=== PATIENT | female | born 1990 | race Caucasian/White ===

== ENCOUNTER 2017-04-11 21:49 | Emergency (ER) | payer OTHER ==
[~2017-04-11] VITALS: Ht 147.3 cm; Wt 61.5 kg
[~2017-04-11 21:49] MED LIST: IBUP800 PO; OXYC-360 PO; PREN0.01 PO
[2017-04-11 21:52] VITALS: BP 138/90; PULSE 77; RESP 16; TEMP 98.3; O2SAT 99
[2017-04-11] MEDS ORDERED: PROPARACAINE HCL 0.5% OPHT SOLN 15 ML BTL RIGHT EYE ONE (22:30)
--- NOTE | 2017-04-11 22:34 | PD ---
HPI Chief Complaint: Eye Problems/Injury Time Seen by Provider: 22:22 Travel History International Travel<30 days: No Contact w/Intl Traveler<30days: No Traveled to known affect area: No History of Present Illness HPI 27yo F with no PMH presents to the ED with c/o right eye irritation, foreign body sensation after splashing a combination of auditing specialist, grease, and crumbs in her right eye at 9:50pm while working in [employer]. Said it was only a few drops and she tried to rinse it out in eye wash but did not last very long. Has a little blurred vision. However, no eye pain or pain with eye movement. Denies any other injuries. Denies any fever, chest pain, sob, n/v, abdominal pain, focal weakness or numbness. PFSH Past Medical History ADHD: No Anxiety: Yes (gets attacks) Depression: Yes Cancer: No Diabetes: No Diminished Hearing: No Psychiatric: No Immunizations Current: Yes Migraines: No Seizures: No Thyroid Disease: No Ulcer: No ?: Not LMP: 04/10/17 Past Surgical History Surgical History: No Previous Surgery Appendectomy: No Cholecystectomy: No Social History Alcohol Use: Yes (RARE) Tobacco Use: Yes (1/2-1PPD) Substance Use: No Allergies-Medications (Allergen,Severity, Reaction): Coded Allergies: No Known Allergies (Verified Adverse Reaction, Unknown, 04/11/17) Reported Meds & Prescriptions Reported Meds & Active Scripts Active Reported Percocet (Oxycodone/Acetaminophen) 5 Mg/325 Mg Tab 1-2 Tab PO Q4H PRN FOR PAIN Motrin 800 Mg Tab (Ibuprofen) 800 Mg Tab 800 Mg PO Q8H PRN Vit ( Plus) (Prenat Multivit/[place]/Iron/Folic Ac) Tab 1 Tab PO DAILY Review of Systems Except as stated in HPI: all other systems reviewed are Neg Physical Exam Narrative GENERAL: 27yo F in mild distress. SKIN: Focused skin assessment warm/dry. HEAD: Atraumatic. Normocephalic. EYES: Pupils equal and round at 3mm bilaterally. EOMI. Right eye: Injected conjunctiva. +Corneal abrasion in mid cornea that can be seen on normal exam. +Florescein uptake in mid cornea with tejada lamp. ENT: No nasal bleeding or discharge. Mucous membranes pink and moist. NECK: Trachea midline. No JVD. CARDIOVASCULAR: Regular rate and rhythm. No murmur appreciated. RESPIRATORY: No accessory muscle use. Clear to auscultation. Breath sounds equal bilaterally. GASTROINTESTINAL: Abdomen soft, non-tender, nondistended. Hepatic and splenic margins not palpable. MUSCULOSKELETAL: No obvious deformities. No clubbing. No cyanosis. No edema. NEUROLOGICAL: Awake and alert. No obvious cranial nerve deficits. Motor grossly within normal limits. Normal speech. PSYCHIATRIC: Appropriate mood and affect; insight and judgment normal. Data Data Last Documented VS Vital Signs Date Time Temp Pulse Resp B/P (MAP) Pulse Ox O2 Delivery O2 Flow Rate FiO2 04/11/17 21:52 98.3 77 16 138/90 (106) 99 Room Air Orders Orders Proparacaine 0.5% Opth Soln (Alcaine 0.5 (04/11/17 22:30) MDM Medical Decision Making Medical Screen Exam Complete: Yes Emergency Medical Condition: Yes Differential Diagnosis Chemical exposure to eye vs. corneal abrasion Narrative Course 27yo F with right eye irritation. Visual acuity: Right eye 20/40. I spoke with poison control who recommended checking pH of eye and then irrigation until no pain. However, I ask charge nurse and everyone and there is no proper pH paper for the eye in stock at this time. I did use francia lens and irrigated 1 liter of NS in right eye. Pt said she feels much better and there is no pain. Wood's lamp showed flurescein uptake in middle of cornea. I discussed with Dr. Motta, decontamination technician [employer] consultant and she said that she follow up with her as outpatient and that we will just treat it like a corneal abrasion. Return precautions given. Diagnosis Primary Impression: Corneal abrasion Qualified Codes: S05.01XA - Injury of conjunctiva and corneal abrasion without foreign body, right eye, initial encounter Referrals: Shara Motta MD call for appointment Departure Forms: Tests/Procedures Additional Instructions: Please follow up with Dr. Motta tomorrow. Return to the ED if symptoms worsen. Med/Other Pt SpecificInfo: Prescription(s) given Scripts Erythromycin Opth Oint (Erythromycin Opth Oint) 5 Mg/Gm Oint 1 APPLIC RIGHT EYE BID for Infection for 5 Days, #1 TUBE 0 Refills Prov: Elayne Topete DO 04/12/17 Disposition: 01 DISCHARGE HOME Condition: Stable Elayne Topete DO Apr 11, 2017 22:34
[2017-04-12] MEDS ORDERED: ERYTOIN10 RIGHT EYE (00:12)
== END 2017-04-12 00:24 | disposition home or self-care (01) ==
LOC: NEPD 21:49
DX: S05.01XA Injury of conjunctiva and corneal abrasion without foreign body, right eye, initial encounter (principal); F17.200 Nicotine dependence, unspecified, uncomplicated; X10.2XXA Contact with fats and cooking oils, initial encounter; Y92.233 Cafeteria of hospital as the place of occurrence of the external cause; Y99.0 Civilian activity done for income or pay
CPT/HCPCS: 99283